=== PATIENT | male | born 1980 | race Caucasian/White ===

== ENCOUNTER 2022-01-28 14:11 | Emergency (ER) | payer MEDICAID ==
[~2022-01-28] VITALS: Ht 180.3 cm; Wt 86.2 kg
--- NOTE | 2022-01-28 15:04 | NUR ---
PT WAS EVALUATED BY DR PETERSEN. PT WAS D/C'd TO HOME. D/C INSTRUCTIONS GIVEN TO THE PT BY DR PETERSEN.
[2022-01-28 15:07] VITALS: BP 139/72
== END 2022-01-28 15:08 | disposition home or self-care (01) ==
LOC: ER 14:14
DX: Z48.02 Encounter for removal of sutures (principal); Z96.641 Presence of right artificial hip joint
CPT/HCPCS: A4663